=== PATIENT | female | born 1980 | race Hispanic/Latino ===

== ENCOUNTER 2017-01-10 09:54 | Emergency (ER) | payer OTHER ==
[~2017-01-10] VITALS: Ht 152.4 cm; Wt 110.0 kg
[~2017-01-10 09:54] MED LIST: KEFLEX500 MG PO; MOTRIN800 MG PO; NORCO 5/3251 TABLET PO
[2017-01-10] MEDS ORDERED: MOTRIN800 MG PO (11:11)
[2017-01-10] MEDS ORDERED: NORCO 7.5/321 TABLET PO (11:11)
[2017-01-10] MEDS ORDERED: VALIUM5 MG PO (11:11)
[2017-01-10 11:26] VITALS: BP 161/101
== END 2017-01-10 11:30 | disposition home or self-care (01) ==
LOC: EME 09:54
DX: S16.1XXA Strain of muscle, fascia and tendon at neck level, initial encounter (principal); S20.219A Contusion of unspecified front wall of thorax, initial encounter; S29.011A Strain of muscle and tendon of front wall of thorax, initial encounter; V49.50XA Passenger injured in collision with unspecified motor vehicles in traffic accident, initial encounter; Y92.488 Other paved roadways as the place of occurrence of the external cause
CPT/HCPCS: 99281; 99284

== ENCOUNTER 2017-01-28 08:43 | Emergency (ER) | payer OTHER ==
[~2017-01-28] VITALS: Ht 152.4 cm; Wt 111.0 kg
[~2017-01-28 08:43] MED LIST changes: +NORCO 7.5/321 TABLET PO; +VALIUM5 MG PO
[2017-01-28] MEDS ORDERED: CLINDAMYCIN HC150 MG PO (11:28)
[2017-01-28 11:54] VITALS: BP 133/86
== END 2017-01-28 11:55 | disposition home or self-care (01) ==
LOC: EME 08:43
PROC: 0H9EXZZ Drainage of Left Lower Arm Skin, External Approach (ICD-10-PCS; principal; 2017-01-28)
DX: L03.114 Cellulitis of left upper limb (principal); L02.414 Cutaneous abscess of left upper limb; T36.95XA Adverse effect of unspecified systemic antibiotic, initial encounter; I10 Essential (primary) hypertension; F17.200 Nicotine dependence, unspecified, uncomplicated
CPT/HCPCS: 73080; 87070; 87075; 87205; 99281; 99284

== ENCOUNTER 2017-02-05 07:36 | Emergency (ER) | payer OTHER ==
[~2017-02-05] VITALS: Ht 152.4 cm; Wt 111.4 kg
[~2017-02-05 07:36] MED LIST changes: +CLINDAMYCIN HC150 MG PO
[2017-02-05 08:19] VITALS: BP 149/89
== END 2017-02-05 08:27 | disposition home or self-care (01) ==
LOC: EME 07:36
DX: S51.002D Unspecified open wound of left elbow, subsequent encounter (principal); W22.8XXD Striking against or struck by other objects, subsequent encounter; I10 Essential (primary) hypertension; F17.200 Nicotine dependence, unspecified, uncomplicated
CPT/HCPCS: 99281; 99283